=== PATIENT | male | born 1945 | race African-American/Black ===

== ENCOUNTER 2021-04-22 11:24 | Emergency (ER) | payer OTHER ==
[~2021-04-22] VITALS: Ht 180.3 cm; Wt 68.0 kg
[2021-04-22 13:13] LABS: BASOPHILS 0.4 % (0.0-2.0); EOSINOPHILS 0.8 % (0.0-3.0); HEMOGLOBIN 17.5 gm/dL (14.0-18.0); LYMPHOCYTES 20.9 % (24.0-44.0); MCH 29.7 pg (26.0-34.0); MCHC 33.1 g/dL (28.0-37.0); MCV 89.7 fL (80.0-100.0); PLATELET COUNT 110 thou/uL (150-400); POLYS 66.9 % (36.0-66.0); RBC 5.91 mil/uL (4.50-6.00); RDW 16.2 % (10.5-14.5)
[2021-04-22 13:25] LABS: CALCIUM 9.1 mg/dL (8.5-10.1); CREATININE 1.6 mg/dL (0.7-1.3); POTASSIUM 4.4 mmol/L (3.5-5.1)
[2021-04-22 13:28] LABS: ALBUMIN 3.5 g/dL (3.4-5.0); TOTAL BILIRUBIN 1.3 mg/dL (0.2-1.0)
[2021-04-22] MEDS ORDERED: DOXYCYCLINE 10100 MG PO (14:58)
[2021-04-22 16:35] VITALS: BP 130/43
== END 2021-04-22 16:35 | disposition home or self-care (01) ==
LOC: ER 11:24
PROVIDERS: Nurse Practitioner
DX: L03.116 Cellulitis of left lower limb (principal); L03.115 Cellulitis of right lower limb

== ENCOUNTER 2021-06-21 05:28 | Emergency (ER) | payer OTHER ==
[~2021-06-21] VITALS: Ht 177.8 cm; Wt 61.9 kg
--- NOTE | ~2021-06-21 | EMS ---
[address] [address] EMS Patient Care Report Name: SIMEON PALMA Room #: REG NOAH Sol#: [id number] Admission: 06/21/21 Attend Phys: Discharge: Date of : 43 Report #: [id number] THIS REPORT FOR: //name// Report Transmitted: 06/21/2021 04:57 EMS Care Summary [place], [place]/[facility] Incident [id number] @ 06/21/2021 05:04 Incident Location [facility][note 3] [facility]3 Patient SIMEON PALMA Male, 75 Years 1945 Patient Address [address] [place] [address] Patient History Hypertension (HTN),Kidney/Renal Failure,Seizures,Stroke/CVA,Hyperlipidemia,Pneumonia,Depression,Alcohol Abuse,Edema,Type 2 Diabetes, Patient Allergies No known allergies, Patient Medications Metoprolol, Furosemide, Citalopram, Atorvastatin, ASA, Chief Complaint FALL FROM STANDING LAC ABOVE LEFT EYE Disposition Transported No Lights/[place] [facility] Reason Falls Transported To [facility] Narrative REC'D CALL FOR A FALL AT HALFWAY. ON ARRIVAL, FOUND PT SITTING IN CHAIR IN HIS ROOM. THERE WAS 2 TRASH BAGS OUTSIDE IN THE VOSS THAT APPEARED TO [address] [address] EMS Patient Care Report Name: SIMEON PALMA Room #: REG Ebenezer#: [id number] Admission: 06/21/21 Attend Phys: Discharge: Date of : 43 Report #: [id number] CONTAIN BLOODY TOWELS, ETC POSSIBLY FROM CLEANING UP THE INJURY SITE. [facility] STAFF STATED THAT PT STOOD UP FROM BED AND FELL, HITTING HEAD ON FLOOR RESULTINNG IN A 2" LAC ABOVE LEFT EYE. BLEEDING IS CONTROLLED AT THIS TIME. PT IS ON BLOOD THINNERS. PT IS CONFUSED, [facility] STAFF STATES THIS IS NORMAL FOR PT. PT HAD NO OTHER COMPLAINT, NO OTHER VISIBLE INJURY. STAFF STATED THAT HE WOULD NORMALLY GO TO [facility]. PT WAS ABLE TO STAND WITH ASSISTANCE TO SIT ON OUR COT, THEN LOADED INTO AMBO. PT ASSESSMENT CONTINUED, UNREMARKABLE. 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 Initial Vitals @05:23P: 93,R: 14,BP: 110/67,Pain: 6/10,GCS: 14,SpO2: 93,Revised Trauma: 12, @05:18P: 95,R: 12,BP: 117/78,Pain: 6/10,GCS: 14,SpO2: 93,Revised Trauma: 12, Assessments @05:12MENTAL:Confused,SKIN:HEENT:Head/Face: Other,Neck/Airway: No Abnormalities,LUNG SOUNDS:General: No Abnormalities,ABDOMEN:General: No Abnormalities,PELVIS//GI:No Abnormalities,EXTREMITIES:Capillary Refill: Left Upper: 4 Sec,Left Arm: No Abnormalities,Right Arm: No Abnormalities,Left Leg: No Abnormalities,Right Leg: No Abnormalities,PULSE:Radial: 2+ Normal,NEURO:No Abnormalities,@05:25MENTAL:No Abnormalities,SKIN:No Abnormalities,HEENT:Head/Face: No Abnormalities,Eyes: No Abnormalities,Neck/Airway: No Abnormalities,LUNG SOUNDS:General: No Abnormalities,ABDOMEN:General: No Abnormalities,PELVIS//GI:No Abnormalities,EXTREMITIES:Capillary Refill: Left Upper: 4 Sec,Left Arm: No Abnormalities,Right Arm: No Abnormalities,Left Leg: No Abnormalities,Right Leg: No Abnormalities,PULSE:Radial: 2+ Normal,NEURO:No Abnormalities, Impression Injury Procedures @05:12ALS AssessmentResponse: UnchangedSucceeded@05:15StretcherResponse: Unchanged Timeline 05:01,Call Received 05:01,Dispatch Notified 05:04,Dispatched 05:05,En Route 05:10,On Scene 05:12,At Patient 05:12,ALS Assessment,Response: UnchangedSucceeded, 05:15,Stretcher,Response: Unchanged 05:18,BP: 117/78 M,PULSE: 95,RR: 12 R,SPO2: 93 Ox,ETCO2: ,BG: ,PAIN: 6,GCS: 14, 05:23,BP: 110/67 M,PULSE: 93,RR: 14 R,SPO2: 93 Ox,ETCO2: ,BG: ,PAIN: 6,GCS: 14, 05:23,Depart Scene [facility] [address] [place] [address] EMS Patient Care Report Name: SIMEON PALMA Room #: REG NOAH Sol#: [id number] Admission: 06/21/21 Attend Phys: Discharge: Date of : 43 Report #: [id number] 05:26,At Destination 05:36,Call Closed Disclaimer [email or web address] Copyright 2020 [employer] This EMS Care Summary contains data elements from the applicable legal record (which may be displayed differently). It is designed to provide pertinent information for the following purposes: continuity of care, clinical quality, and state data reporting. The complete legal record is available to ED staff and administrators of the receiving hospital in [employer]'s Patient Tracker. All data is provided "as is."
[~2021-06-21 05:28] MED LIST: DOXYCYCLINE 10100 MG PO
[2021-06-21] MEDS ORDERED: ELIQUIS5 MG PO (05:58)
[2021-06-21] MEDS ORDERED: ADULT ASPIRIN R81 MG PO (05:59)
[2021-06-21] MEDS ORDERED: VITAMIN C500 M2 PO (05:59)
[2021-06-21] MEDS ORDERED: CARVEDILOL12.5 MG PO (06:00)
[2021-06-21] MEDS ORDERED: COZAAR 25 MG TA25 M2 PO (06:00)
[2021-06-21] MEDS ORDERED: FLOMAX0.4 MG PO (06:00)
[2021-06-21] MEDS ORDERED: CELEXA 20 MG TA20 MG PO (06:00)
[2021-06-21] MEDS ORDERED: FUROSEMIDE 20 M20 MG PO (06:01)
[2021-06-21] MEDS ORDERED: LIPITOR40 MG PO (06:02)
[2021-06-21] MEDS ORDERED: SUPER THERAVIT1 EACH PO (06:02)
[2021-06-21] MEDS ORDERED: MUCINEX600 MG PO (06:02)
[2021-06-21 07:35] VITALS: BP 126/73
== END 2021-06-21 08:17 | disposition home or self-care (01) ==
LOC: ER 05:28
DX: S01.112A Laceration without foreign body of left eyelid and periocular area, initial encounter (principal); S16.1XXA Strain of muscle, fascia and tendon at neck level, initial encounter; D68.318 Other hemorrhagic disorder due to intrinsic circulating anticoagulants, antibodies, or inhibitors; Z79.82 Long term (current) use of aspirin; Z79.899 Other long term (current) drug therapy; Z79.891 Long term (current) use of opiate analgesic; W07.XXXA Fall from chair, initial encounter; Y93.89 Activity, other specified; Y92.89 Other specified places as the place of occurrence of the external cause; Y99.8 Other external cause status